=== PATIENT | male | born 1960 | race Caucasian/White ===

== ENCOUNTER 2016-07-04 21:05 | Emergency (ER) | payer MEDICARE, MEDICAID ==
[2016-07-04] MEDS ORDERED: SODIUM CHLORIDE 0.9% 1,000 ML ONE ×2 (22:40→23:59)
[2016-07-04] MEDS ORDERED: KETOROLAC TROMETHAMINE 30 MG/ML 1 ML VIAL ONE (22:41)
[2016-07-04 23:22] LABS: ABSOLUTE NEUTROPHIL COUNT 0.9 K/mm3 (1.8-7.7); BASO % 1.2 % (0.2-1.0); EOS % 1.9 % (0.9-2.9); HEMATOCRIT 38.9 % (32.0-52.0); HEMOGLOBIN 14.1 gm/l (14.0-18.0); IMM NEUT% 0.6 % (0-1); LYMPH # 0.5 (1.0-4.8); LYMPH % 30.2 % (15-45); MEAN CELL VOLUME 91.5 fl (80.0-94.0); MEAN CORPUSCULAR HEMOGLOBIN 33.2 pg (27.0-31.0); MEAN CORPUSCULAR HGB CONC 36.2 g/dl (33.0-37.0); MEAN PLATELET VOLUME 11.5 fl (7.4-10.4); MONO # 0.2 (0.0-0.8); MONO % 11.1 % (4-12); PLATELET COUNT 39 K/mm3 (130-400); RED CELL DISTRIBUTION WIDTH 12.1 % (11.5-14.5)
[2016-07-04 23:35] LABS: ALB/GLOB RATIO 1.2 (>1.0); ALBUMIN 3.4 gm/dL (3.5-5.7); CALCIUM 9.1 mg/dL (8.6-10.3)
[2016-07-04] MEDS ORDERED: MORPHINE SULFATE 4 MG/ML SYRINGE ONE (23:59)
[2016-07-05 00:32] LABS: SPECIFIC GRAVITY 1.015 (1.001-1.030); URINE BILIRUBIN NEGATIVE (NEGATIVE); URINE BLOOD TRACE (NEGATIVE); URINE GLUCOSE (UA) 3+ (NEGATIVE); URINE LEUKOCYTE ESTERASE NEGATIVE (NEGATIVE); URINE NITRITE NEGATIVE (NEGATIVE); URINE PROTEIN NEGATIVE (NEGATIVE); URINE UROBILINOGEN 1 mg/dL (0-1 mg/dl)
[2016-07-05 00:34] LABS: URINE APPEARANCE CLEAR; URINE COLOR YELLOW
[2016-07-05 00:42] LABS: URINE BACTERIA 0; URINE EPITHELIAL CELLS FEW /hpf; URINE WBC NEG /hpf
[2016-07-05 00:49] LABS: BAND 0 % (0-10); BASOPHIL 0 % (0-1); EOSINOPHIL 0 % (1-3); LYMPHOCYTE 30 % (15-45); MONOCYTE 10 % (4-12); NEUTROPHILS 60 % (43-75); PLATELET ESTIMATE DECREASED (NORMAL); TOTAL CELLS COUNTED 100
--- NOTE | 2016-07-05 08:42 | RAD ---
HISTORY: Low back pain for several weeks. No known injury. COMPARISON: None Findings: AP and lateral views of the lumbar spine with AP spot film of the lumbo-sacral junction are obtained. The alignment, development and bony structures are normal. There is no fracture, dislocation or destructive lesion. The disk spaces and vertebral body heights are well-preserved. Hardware from pedicle screw and erik fixation of L4-S1 is present. There is some prominent lucency about the L4 screws on lateral film. This is thought to represent the left hardware based on the AP views. This may represent the patient's normal postoperative state though findings are somewhat worrisome for minimal hardware loosening. Remainder the hardware is intact. Posterior laminectomy defect is noted. The sacrum and sacroiliac joints are normal. IMPRESSION: Prominent lucency about the L4 screw, thought to be on the left. While this may represent patient's normal state, findings are somewhat concerning for minimal hardware loosening. As the patient undoubtably has prior studies at an outside institution, if these could be digitized into the [facility] PACS, a direct comparison could be made and addendum to this report generated as clinically warrented.
== END 2016-07-05 01:49 | disposition home or self-care (01) ==
LOC: ED 21:05
DX: M54.9 Dorsalgia, unspecified (principal); B19.20 Unspecified viral hepatitis C without hepatic coma; D69.6 Thrombocytopenia, unspecified; D70.9 Neutropenia, unspecified; E11.65 Type 2 diabetes mellitus with hyperglycemia; Z79.84 Long term (current) use of oral hypoglycemic drugs
CPT/HCPCS: 85025; 80053; 81001; 72100; 96375; 99284; 96374; 96361; 82962; 51798; 99283; J2270; J1885; J7030 ×2